=== PATIENT | female | born 1995 | race African-American/Black ===

== ENCOUNTER 2019-01-20 06:00 | Emergency (ER) | payer MEDICAID ==
[~2019-01-20] VITALS: Ht 157.5 cm; Wt 52.2 kg
[2019-01-20 06:03] VITALS: BP_SYST 125
--- NOTE | 2019-01-20 06:06 | NUR ---
Patient to ER bed 8 to gown for evaluation. Side rails up. Report given to ed jaffe.
--- NOTE | 2019-01-20 06:23 | NUR ---
ER at bedside examining patient.
--- NOTE | 2019-01-20 06:25 | NUR ---
Pt came into ED complaining of cough with sore throat, body ache, LOTT with chest wall pain after coughing. Allergic to penicillin. No other complaints/injuries noted. Will cont. to monitor.
--- NOTE | 2019-01-20 07:10 | NUR ---
report given. patient states she has chest wall pain 08/03. md notified.
--- NOTE | 2019-01-20 07:10 | NUR ---
comfort measures provided. Dr. Barry at bedside.
[2019-01-20 07:24] VITALS: BP_SYST 125
--- NOTE | 2019-01-20 07:24 | NUR ---
Patient given written and verbal discharge instructions and verbalizes understanding. ER MD discussed with patient the results and treatment provided. Patient in stable condition. ID arm band removed. Rx of Tessalon given. Patient educated on pain management and to follow up with PMD. Pain Scale 0/10. Opportunity for questions provided and answered. Medication side effect fact sheet provided.
== END 2019-01-20 07:24 | disposition home or self-care (01) ==
LOC: SED 06:00
DX: J06.9 Acute upper respiratory infection, unspecified (principal); B34.9 Viral infection, unspecified; R07.89 Other chest pain; R05 Cough; R51 Headache; Z88.0 Allergy status to penicillin
CPT/HCPCS: 36415; 71045; 86710; 99284

== ENCOUNTER 2019-02-15 15:52 | Emergency (ER) | payer MEDICAID ==
[~2019-02-15] VITALS: Ht 157.5 cm; Wt 52.2 kg
[2019-02-15 15:55] VITALS: BP_SYST 111
--- NOTE | 2019-02-15 16:00 | NUR ---
Patient triaged and placed in waiting room. VSS and patient appears in no acute distress at this time. Accompanied by family, awaiting available bed, and MD notified of need for MSE.
--- NOTE | 2019-02-15 16:25 | NUR ---
Patient to ER bed 7 to gown for evaluation. Side rails up. Report given to
--- NOTE | 2019-02-15 16:30 | NUR ---
PATIENT SITTING UP ON BED. AAOx4. RESPIRATIONS EVEN AND UNLABORED. NO SOB. DENIES OF ANY CHEST PAIN. PT WITH C/O CONSTANT SHARP/ACHING UPPER ABDOMINAL PAIN SINCE LAST NIGHT. PATIENT WITH NAUSEA. NO VOMITING. DENIES OF ANY DIARRHEA. NO FEVERS. DENIES OF ANY SYMPTOMS. LBM LAST NIGHT. ABDOMEN SOFT, BUT TENDER UPON PALPATION. BOWEL SOUNDS PRESENT AND HYPERACTIVE x4. PT NOTED WITH ABDOMINAL GUARDING. REST AND RELAXATION ENCOURAGED. MD AWARE OF PT CONDITION AND CHIEF COMPLAINT. AWAITING ORDERS.
--- NOTE | 2019-02-15 16:35 | NUR ---
ER Dr. URIBE at bedside examining patient.
[2019-02-15] MEDS ORDERED: KETOROLAC TROMETHAMINE 30 MG VIAL IVP ONE (16:45)
[2019-02-15 16:55] LABS: BILIRUBIN,URINE NEGATIVE (NEGATIVE); BLOOD, URINE NEGATIVE (NEGATIVE); CLARITY/URINE CLEAR (CLEAR); COLOR,URINE YELLOW (YELLOW); GLUCOSE,URINE NEGATIVE (NEGATIVE); KETONES,URINE NEGATIVE (NEGATIVE); LEUKOCYTE ESTERASE ,URINE TRACE (NEGATIVE); NITRITE, URINE NEGATIVE (NEGATIVE); PROTEIN URINE NEGATIVE (NEGATIVE); UROBILINOGEN,URINE 0.2 (0.2-1.0)
--- NOTE | 2019-02-15 16:56 | NUR ---
TORADOL ADMINISTERED FOR ABDOMINAL PAIN = 8/10; TOLERATED WELL. PLEASE SEE EMAR FOR DETAILS.
[2019-02-15 17:04] LABS: BASOPHILS % (AUTO) 0.6 % (0.0-2.0); EOSINOPHILS # (AUTO) 0.3 K/uL (0.0-0.4); EOSINOPHILS % (AUTO) 5.6 % (0.0-4.0); HEMATOCRIT 36.9 % (36-48); HEMOGLOBIN 12.3 g/dL (12.0-16.0); LYMPHOCYTES # (AUTO) 1.6 K/uL (1.0-5.5); MEAN CORPUSCULAR HEMOGLOBIN 29 pg (27-31); MEAN CORPUSCULAR HGB CONC 33 % (32-36); MEAN CORPUSCULAR VOLUME 88 fL (79.0-98.0); MONOCYTES # (AUTO) 0.5 K/uL (0.0-1.0); MONOCYTES % (AUTO) 10.1 % (1.7-9.3); NEUTROPHILS # (AUTO) 2.2 K/uL (1.8-7.7); NEUTROPHILS % (AUTO) 48.7 % (40.0-70.0); PLATELET COUNT (AUTO) 190 K/uL (130-430); RED BLOOD CELL COUNT(AUTO) 4.19 MIL/uL (4.2-6.2); RED CELL DISTRIBUTION WIDTH 12.8 % (9.0-15.0); WHITE BLOOD COUNT (AUTO) 4.5 K/uL (4.8-10.8)
[2019-02-15 17:15] LABS: CALCIUM 9.1 mg/dL (8.4-11.0); CREATININE 0.66 mg/dL (0.55-1.30); POTASSIUM 3.9 mmol/L (3.5-5.1)
[2019-02-15 17:21] LABS: ALBUMIN 3.2 g/dL (3.4-4.8); TOTAL BILIRUBIN 0.7 mg/dL (0.0-1.0)
--- NOTE | 2019-02-15 17:25 | NUR ---
PATIENT VERBALIZED GOOD RELIEF FROM ABDOMINAL PAIN. PAIN = 6/10; TOLERABLE VERBALIZED. NO OBJECTIVE S/SX OF PAIN OBSERVED. REST AND RELAXATION ENCOURAGED. MD AWARE OF PT CURRENT PAIN LEVEL. NO NEW ORDERS GIVEN AT THIS TIME.
[2019-02-15 17:34] LABS: BACTERIA,URINE FEW /HPF (None Seen); MUCUS,URINE None Seen /LPF (None Seen); RBC,URINE 0-3 /HPF (0-3); WBC,URINE 0-3 /HPF (0-3)
--- NOTE | 2019-02-15 18:31 | NUR ---
Patient given written and verbal discharge instructions and verbalizes understanding. ER MD discussed with patient the results and treatment provided. Patient in stable condition. ID arm band removed. IV catheter removed intact and dressing applied, no active bleeding. NO Rx given. Patient educated on pain management and to follow up with PMD. Pain Scale 3/10 TOLERABLE. Opportunity for questions provided and answered. Medication side effect fact sheet provided.
[2019-02-15 18:32] VITALS: BP_SYST 111
== END 2019-02-15 18:31 | disposition home or self-care (01) ==
LOC: SED 15:52
DX: N80.9 Endometriosis, unspecified (principal); R10.9 Unspecified abdominal pain; R03.0 Elevated blood-pressure reading, without diagnosis of hypertension; Z88.0 Allergy status to penicillin
CPT/HCPCS: 36415; 80053; 81000; 81025; 83690; 85025; 87086; 96374; 99283; J1885

== ENCOUNTER 2019-02-15 22:25 | Emergency (ER) | payer MEDICAID ==
[~2019-02-15] VITALS: Ht 157.5 cm; Wt 52.2 kg
[2019-02-15 22:50] VITALS: BP_SYST 117
--- NOTE | 2019-02-15 22:50 | NUR ---
2250 - Patient to ER bed 3 to gown for evaluation. Side rails up
--- NOTE | 2019-02-15 23:20 | NUR ---
2320 - Assumed care of pt. Pt states she was here earlier today for abd pain, which improved, but did not resolve. States she got home around 1800, was fine, and then about 2 hrs ago developed worsening pain, and n/v which she did not have earlier. States she has been vomiting green and yellow, mucus consistency. States pain is worse than when she came in earlier. Hx of endometriosis.
[2019-02-15] MEDS ORDERED: NACL 0.9% 1,000 ML IV ONE (23:39)
[2019-02-15] MEDS ORDERED: MORPHINE 4 MG/ML INJ. SYRINGE IVP ONE (23:45)
[2019-02-15] MEDS ORDERED: ONDANSETRON HCL 4 MG/2 ML VIAL IVP ONE (23:45)
[2019-02-15] MEDS ORDERED: PANTOPRAZOLE SODIUM 40 MG/VIAL (PROTONIX) IVP ONE (23:45)
[2019-02-15] MEDS ORDERED: DIPHENHYDRAMINE INJ 50 MG/ML VIAL IVP ONE (23:45)
--- NOTE | 2019-02-15 23:45 | NUR ---
2345 - ER at bedside examining patient.
[2019-02-15 23:47] LABS: BASOPHILS % (AUTO) 0.4 % (0.0-2.0); EOSINOPHILS # (AUTO) 0.2 K/uL (0.0-0.4); HEMOGLOBIN 13.9 g/dL (12.0-16.0); LYMPHOCYTES % (AUTO) 20.3 % (20.5-51.5); MEAN CORPUSCULAR HEMOGLOBIN 30 pg (27-31); MEAN CORPUSCULAR HGB CONC 34 % (32-36); MEAN CORPUSCULAR VOLUME 88 fL (79.0-98.0); MONOCYTES # (AUTO) 0.5 K/uL (0.0-1.0); MONOCYTES % (AUTO) 5.6 % (1.7-9.3); NEUTROPHILS % (AUTO) 71.7 % (40.0-70.0); PLATELET COUNT (AUTO) 222 K/uL (130-430); RED BLOOD CELL COUNT(AUTO) 4.68 MIL/uL (4.2-6.2); WHITE BLOOD COUNT (AUTO) 9.7 K/uL (4.8-10.8)
[2019-02-16] MEDS ORDERED: KETOROLAC TROMETHAMINE 30 MG VIAL IVP ONE (00:15)
[2019-02-16 00:21] LABS: CALCIUM 9.9 mg/dL (8.4-11.0); CREATININE 0.89 mg/dL (0.55-1.30); POTASSIUM 3.3 mmol/L (3.5-5.1)
[2019-02-16 00:26] LABS: ALBUMIN 3.6 g/dL (3.4-4.8); TOTAL BILIRUBIN 0.7 mg/dL (0.0-1.0)
[2019-02-16 01:46] VITALS: BP_SYST 118
--- NOTE | 2019-02-16 01:46 | NUR ---
0146 - Patient given written and verbal discharge instructions and verbalizes understanding. ER MD discussed with patient the results and treatment provided. Patient in stable condition. ID arm band removed. IV catheter removed intact and dressing applied, no active bleeding. Rx of zofran given. Patient educated on pain management and to follow up with PMD. Opportunity for questions provided and answered. Medication side effect fact sheet provided.
[2019-02-16] MEDS ORDERED: ONDANSETRON HCL 4 MG/2 ML VIAL ONE (01:48)
== END 2019-02-16 01:46 | disposition home or self-care (01) ==
LOC: SED 22:25
DX: R11.2 Nausea with vomiting, unspecified (principal); Z87.42 Personal history of other diseases of the female genital tract; Z88.0 Allergy status to penicillin
CPT/HCPCS: 36415; 80053; 83690; 85025; 96374; 96375; 99283; C9113; J1200; J1885; J2405 ×2; J7030; J2270